=== PATIENT | female | born 2000 | race Caucasian/White ===

== ENCOUNTER 2024-08-16 15:57 | Emergency (ER) | payer OTHER, SELFPAY ==
[2024-08-16 16:05] VITALS: BP 122/70
--- NOTE | 2024-08-16 16:08 | ED.GENMED ---
History of Present Illness
General
Chief Complaint: Crisis Evaluation
Source: patient
Time Seen by Provider: 08/16/24 16:08
History of Present Illness
History of Present Illness:
Patient was initially seen and evaluated during [facility] downtime.
08/16/2024 1518 PM
24yoF with a history of bipolar disorder, ADHD, PTSD, depression, and anxiety presenting for psychiatric evaluation. Patient reports suicidal thoughts with a plan to overdose. She has a history of multiple inpatient admissions. Most recently, she
was discharged from [facility] 9 days ago. She went to [facility] for intake for a [facility]. She does not feel that the partial program is enough support for her so she was sent to the ED. She denies any recent suicide attempts. No drug or alcohol use.
No hallucinations.
Phy Exam
General Physical Exam
General Presentation: well appearing and no apparent distress
General age: appears stated age
General Skin: warm and dry
General Habitus: normal
General Mental: alert
ENT Exam
ENT Exam: normocephalic
Pulmonary Exam
Pulmonary Exam: no respiratory distress
Neurological Exam
Neurological Exam: alert
[place] Coma Scale
Eye Opening: Spontaneous
Verbal Response: Oriented
Motor Response: Obeys Commands
GCS Total Score: 15
Skin Exam
Skin Exam: normal color and warm/dry
Psychiatric Exam
Psychiatric Exam: depressed and other (+SI with plan. Cooperative during assessment. No signs of psychosis. )
Course
Orders/Labs/Results
Orders:
Orders
08/16/24 Dinner
Regular
At Your Request: Full Participation
Does patient need a safe tray?: Yes
08/16/24 16:16
Crisis Consult Urgent
Reason for Consult: SI
observation [ED Special Safety Observation] Q4
Observation level: One to Two
08/16/24 16:20
Alcohol Urgent
Complete Blood Count/With Diff Urgent
Comprehensive Metabolic Panel Urgent
Fentanyl, Urine Urgent
HCG, Serum Qualitative Screen Urgent
Urine Drug Abuse Screen Urgent
08/16/24 19:30
ARIPiprazole [Abilify] 5 mg PO NOW STA
HydrOXYZINE [Atarax] 100 mg PO NOW STA
08/16/24 19:42
Prazosin HCl [Minipress] 2 mg PO NOW STA
Trazodone [Desyrel] 150 mg PO NOW STA
Abnormal Lab Results
08/16/24
16:20
WBC 14.2 H 10^3/uL
(4.8-10.8)
RBC 5.55 H 10^6/uL
(4.20-5.40)
MCH 26.7 L pg
(27.0-31.0)
MCHC 32.2 L g/dL
(33.0-37.0)
Abs Immat Gran (auto) 0.1 H 10^3/uL
(0-0.05)
Absolute Neuts (auto) 9.6 H 10^3/uL
(1.4-6.5)
Absolute Monos (auto) 0.9 H 10^3/uL
(0.1-0.6)
Immature Gran % 0.6 H %
(0-0.5)
BUN 22 H mg/dl
(7-17)
Glucose 171 H mg/dl
(70-99)
Calcium 10.4 H mg/dl
(8.4-10.2)
Total Protein 8.3 H g/dl
(6.3-8.2)
Albumin 5.2 H g/dl
(3.5-5.0)
Ur Amphetamines Screen Positive H
(Negative)
08/16/24 16:20
08/16/24 16:20
Vital Signs
Initial and Last Documented VS:
Initial Vital Signs
Temp Pulse Resp BP Pulse Ox
98.6 F 100 18 122/70 99
08/16/24 16:05 08/16/24 16:05 08/16/24 16:05 08/16/24 16:05 08/16/24 16:05
Last Documented Vital Signs
Temp Pulse Resp BP Pulse Ox
98.6 F 94 18 117/69 99
08/16/24 16:05 08/16/24 20:14 08/16/24 20:06 08/16/24 20:14 08/16/24 20:06
MDM/Problems Addressed
Differential Diagnosis Includes:
24yoF here for psych eval. Went for intake at [facility] today. Expressed SI with a plan and was sent to the ED. Patient interested in inpatient treatment. Just left [facility] after an admission 9 days ago. No signs of psychosis on
exam.
Initial ED plan: Check CBC, CMP, HCG, ETOH, and UDS. Continual observation initiated and crisis consulted.
Final assessment: Patient evaluated by crisis and patient agreeable to signing a 201. Bed search initiated. Patient medically cleared for psychiatric admission. Case signed out to Solo Atkinson PA-C awaiting placement.
*Critical Care Note
Total Time (30-74mins, 75-104mins- exclusive of procedures): Not Applicable
ED Attending Note
-
Portions of this chart may have been created with voice recognition software.� Occasional wrong word or��sound alike� substitutions may have occurred due to the inherent limitations of voice recognition software.
Discharge Plan
Departure
Patient Disposition: Psych Facility
Date of Disposition: 08/16/24
Time of Disposition: 17:26
Discharge Problem:
Depression with suicidal ideation
Prescriptions:
No Action
hydroxyzine pamoate [Vistaril] 100 mg Capsule
100 mg PO BID
trazodone 150 mg Tablet
150 mg PO HS
prazosin [Minipress] 2 mg Capsule
2 mg PO HS
aripiprazole [Abilify] 5 mg Tablet
5 mg PO HS
Referrals:
Bibiana Knight MD [Family Provider, Internal Medicine]
Interventions
Interventions:
*Nursing Disposition Last Done: 08/16/24 20:44
ED-Psychological Assessment Last Done: 08/16/24 15:30
Discharge Date and Time
Discharge Date/Time: 08/16/24 20:44
Print Language: BANGLADESHI
[2024-08-16 17:15] LABS: HCG, Serum Qualitative Screen Negative
[2024-08-16 17:19] LABS: ALT (SGPT) 30 U/L (0-35); AST (SGOT) 25 U/L (14-36); Albumin 5.2 g/dl (3.5-5.0); Alkaline Phosphatase 104 U/L (38-126); Blood Urea Nitrogen 22 mg/dl (7-17); Calcium 10.4 mg/dl (8.4-10.2); Carbon Dioxide 30 mmol/L (22-30); Chloride 102 mmol/L (98-107); Glucose 171 mg/dl (70-99); Potassium 4.5 mmol/L (3.5-5.1); Sodium 141 mmol/L (135-145); Total Bilirubin 0.3 mg/dl (0.2-1.3); Total Protein 8.3 g/dl (6.3-8.2); eGFR > 60.00
[2024-08-16 17:20] LABS: Alcohol None Detected
[2024-08-16 17:35] LABS: Amphetamines Positive (Negative); Barbiturates Negative (Negative); Benzodiazepines Negative (Negative); Buprenorphine Negative (Negative); Cocaine Negative (Negative); Marijuana Negative (Negative); Methadone Negative (Negative); Methamphetamines Negative (Negative); Opiates Negative (Negative); Phencyclidine Negative (Negative); Tricyclic Antidepressants Negative (Negative)
[2024-08-16 17:45] VITALS: BMI 39.1
[2024-08-16 18:13] LABS: Fentanyl, Urine Negative (Negative)
[2024-08-16 18:49] LABS: % Basophils 0.4 % (0-2); % Eosinophils 1.6 % (0-6); % Immature Granulocytes 0.6 % (0-0.5); % Monocytes 6.1 % (1.7-9.3); % Neutrophils 67.3 % (42.2-75.2); Absolute Basophils 0.1 10^3/uL (0-0.2); Absolute Eosinophils 0.2 10^3/uL (0-0.7); Absolute Immature Granulocytes 0.1 10^3/uL (0-0.05); Absolute Lymphocytes 3.4 10^3/uL (1.2-3.4); Absolute Monocytes 0.9 10^3/uL (0.1-0.6); Absolute Neutrophils 9.6 10^3/uL (1.4-6.5); Hematocrit 45.9 % (37.0-47.0); Hemoglobin 14.8 g/dL (12.0-16.0); Mean Corp Hgb Conc. 32.2 g/dL (33.0-37.0); Mean Corpuscular Hgb 26.7 pg (27.0-31.0); Mean Corpuscular Volume 82.7 fL (81.0-99.0); Nucleated Red Blood Cells % 0 %; Platelet Count 322 10^3/uL (130-400); Red Blood Cell Count 5.55 10^6/uL (4.20-5.40); Red Cell Dist. Width 13.2 % (11.5-14.5); White Blood Cell Count 14.2 10^3/uL (4.8-10.8)
[2024-08-16 19:08] VITALS: BP 123/74
--- NOTE | 2024-08-16 19:20 | DOWNTIME ---
There was a [email or web address] Downtime on 08/16/2024 from 1230 to 08/16/2024 at 1550. Downtime documentation of patient's care, including medication administrations, has been reconciled in the electronic record per guidelines. Refer to the
patient's paper chart under the miscellaneous tab to see printed paper medication records and downtime forms.
[2024-08-16 20:06] VITALS: BP 117/69
[2024-08-16] MEDS: ABILIFY 5 MG PO (20:12)
[2024-08-16] MEDS: DESYREL 150 MG PO (20:13)
[2024-08-16] MEDS: MINIPRESS 2 MG PO (20:14)
[2024-08-16] MEDS: ATARAX 100 MG PO (20:15)
== END 2024-08-16 20:44 ==
LOC: EMR 15:57
PROVIDERS: EMERGENCY PHYSICIAN Emergency Medicine; FAMILY PHYSICIAN Emergency Medicine
DX: R45.851 Suicidal ideations (principal); F31.9 Bipolar disorder, unspecified; F90.9 Attention-deficit hyperactivity disorder, unspecified type; F43.10 Post-traumatic stress disorder, unspecified; F41.9 Anxiety disorder, unspecified
CPT/HCPCS: 99285; 80053; 80306; 80307; 82077; 84703; 85025